=== PATIENT | male | born 1970 | race Caucasian/White ===

== ENCOUNTER 2017-01-26 06:02 | Inpatient (IN) | payer BC ==
[~2017-01-26] VITALS: Ht 175.3 cm; Wt 109.8 kg
[2017-01-26 08:07] LABS: BILIRUBIN,URINE 1+ (NEGATIVE); BLOOD, URINE NEGATIVE (NEGATIVE); CLARITY/URINE CLEAR (CLEAR); COLOR,URINE YELLOW (YELLOW); GLUCOSE,URINE NEGATIVE (NEGATIVE); KETONES,URINE 1+ (NEGATIVE); LEUKOCYTE ESTERASE ,URINE NEGATIVE (NEGATIVE); NITRITE, URINE NEGATIVE (NEGATIVE); PH,URINE 5.5 (5.0-8.0); PROTEIN URINE 1+ (NEGATIVE); UROBILINOGEN,URINE 0.2 (0.2-1.0)
[2017-01-26 08:10] LABS: BACTERIA,URINE RARE /HPF (None Seen); MUCUS,URINE 1+ /LPF (None Seen); RBC,URINE 0-3 /HPF (0-3); WBC,URINE 0-3 /HPF (0-3)
[2017-01-26 08:19] LABS: INR 1.2 (0.80-1.20); PROTHROMBIN TIME 12.7 SECS (9.5-12.5)
[2017-01-26 08:29] LABS: CALCIUM 8.4 mg/dL (8.4-11.0); CREATININE 1.05 mg/dL (0.55-1.30); POTASSIUM 3.9 mmol/L (3.5-5.1)
[2017-01-26 08:35] LABS: ALBUMIN 2.3 g/dL (3.4-4.8); TOTAL BILIRUBIN 0.8 mg/dL (0.0-1.0)
[2017-01-26 08:40] LABS: HEMOGLOBIN 8.3 g/dL (14.0-18.0); MEAN CORPUSCULAR HEMOGLOBIN 28 pg (27-31); MEAN CORPUSCULAR HGB CONC 33 % (32-36); MEAN CORPUSCULAR VOLUME 86 fL (79.0-98.0); PLATELET COUNT (AUTO) 64 K/uL (130-430); RED BLOOD CELL COUNT(AUTO) 2.92 MIL/uL (4.2-6.2); RED CELL DISTRIBUTION WIDTH 18.7 % (9.0-15.0)
[2017-01-26 08:44] LABS: WHITE BLOOD COUNT (AUTO) 1.1 K/uL (4.8-10.8)
[2017-01-26 09:40] LABS: BASOPHILS % (MANUAL) 0 % (0-2); EOSINOPHILS % (MANUAL) 0 % (0-7); LYMPHOCYTES % (MANUAL) 63 % (20-46); MONOCYTES % (MANUAL) 2 % (0-11)
[2017-01-26] MEDS ORDERED: PIPERACILLIN/TAZOBACTAM 4.5 GM/VIAL (ZOSYN) IV ONE (10:16)
[2017-01-26] MEDS ORDERED: ACETAMINOPHEN 500 MG TABLET ONE (11:28)
[2017-01-26 12:30] VITALS: BP_SYST 117
[2017-01-26] MEDS ORDERED: VANCOMYCIN HCL 750 MG in NS 250 ML IV SCH (16:00)
[2017-01-26] MEDS ORDERED: VANCOMYCIN HCL 1,500 MG in NS 250 ML IV SCH (16:00)
[2017-01-26] MEDS ORDERED: VANCOMYCIN HCL 1,250 MG in NS 250 ML IV SCH (16:00)
[2017-01-26] MEDS ORDERED: VANCOMYCIN HCL 1,000 MG in NS 250 ML IV SCH (16:00)
[2017-01-26] MEDS ORDERED: VANCOMYCIN HCL 500 MG in NS 100 ML IV SCH (16:00)
[2017-01-26 16:03] VITALS: BP_SYST 115
[2017-01-26] MEDS: VANCOMYCIN HCL 1,500 MG in NS 250 ML IV SCH (16:04)
[2017-01-26] MEDS: PIPERACILLIN/TAZO 4.5 GM in NS 100 ML IV SCH (17:01)
[2017-01-26] MEDS: FILGRASTIM 480 MCG/VIAL SUBCUT SCH (17:10)
[2017-01-26] MEDS: LEVOFLOXACIN 500 MG/D5W 100 ML IV SCH (17:34)
[2017-01-26] MEDS: ACETAMINOPHEN 325 MG TABLET PO PRN (19:20)
[2017-01-26 20:00] VITALS: BP_SYST 111
[2017-01-27 00:23] VITALS: BP_SYST 95
[2017-01-27] MEDS: PIPERACILLIN/TAZO 4.5 GM in NS 100 ML IV SCH ×3 (02:09→18:25)
[2017-01-27] MEDS: VANCOMYCIN HCL 1,500 MG in NS 250 ML IV SCH ×2 (04:10→17:35)
[2017-01-27 04:32] VITALS: BP_SYST 104
[2017-01-27 07:08] LABS: HEMOGLOBIN 8.1 g/dL (14.0-18.0); PLATELET COUNT (AUTO) 71 K/uL (130-430)
[2017-01-27 07:13] LABS: HEMATOCRIT 24.8 % (36-54); MEAN CORPUSCULAR HEMOGLOBIN 28 pg (27-31); MEAN CORPUSCULAR HGB CONC 33 % (32-36); MEAN CORPUSCULAR VOLUME 86 fL (79.0-98.0); RED BLOOD CELL COUNT(AUTO) 2.89 MIL/uL (4.2-6.2); RED CELL DISTRIBUTION WIDTH 19.2 % (9.0-15.0)
[2017-01-27 07:15] LABS: WHITE BLOOD COUNT (AUTO) 1.4 K/uL (4.8-10.8)
[2017-01-27 07:35] LABS: CALCIUM 7.9 mg/dL (8.4-11.0); CREATININE 1.05 mg/dL (0.55-1.30); PHOSPHORUS 2.8 mg/dL (2.7-4.5); POTASSIUM 4.8 mmol/L (3.5-5.1); TOTAL BILIRUBIN 0.9 mg/dL (0.0-1.0)
[2017-01-27 07:54] LABS: BASOPHILS % (MANUAL) 0 % (0-2); EOSINOPHILS % (MANUAL) 0 % (0-7); LYMPHOCYTES % (MANUAL) 61 % (20-46); MONOCYTES % (MANUAL) 1 % (0-11)
[2017-01-27 08:00] VITALS: BP_SYST 117
[2017-01-27 08:07] LABS: ERYTHROCYTE SEDIMENTATION RATE 106 MM/HR (0-15)
[2017-01-27] MEDS ORDERED: ENOXAPARIN SODIUM 40 MG/0.4 ML SYRINGE SUBCUT SCH (09:00)
[2017-01-27 12:00] VITALS: BP_SYST 126
[2017-01-27 15:53] VITALS: BP_SYST 130
[2017-01-27] MEDS: LEVOFLOXACIN 500 MG/D5W 100 ML IV SCH (17:34)
[2017-01-27] MEDS: ONDANSETRON HCL 4 MG/2 ML VIAL IVP PRN (17:35)
[2017-01-27] MEDS: FILGRASTIM 480 MCG/VIAL SUBCUT SCH (18:24)
[2017-01-27 20:40] VITALS: BP_SYST 113
[2017-01-27] MEDS: ACETAMINOPHEN 325 MG TABLET PO PRN (21:08)
[2017-01-28 00:16] VITALS: BP_SYST 92
[2017-01-28] MEDS: PIPERACILLIN/TAZO 4.5 GM in NS 100 ML IV SCH ×3 (02:30→18:45)
[2017-01-28] MEDS: VANCOMYCIN HCL 1,500 MG in NS 250 ML IV SCH ×2 (03:46→16:41)
[2017-01-28 04:41] VITALS: BP_SYST 111
[2017-01-28 07:25] LABS: ALBUMIN 2.1 g/dL (3.4-4.8); CALCIUM 8.1 mg/dL (8.4-11.0); CREATININE 1.13 mg/dL (0.55-1.30); TOTAL BILIRUBIN 0.7 mg/dL (0.0-1.0)
[2017-01-28 07:59] LABS: BASOPHILS % (AUTO) 0.2 % (0.0-2.0); EOSINOPHILS % (AUTO) 2.6 % (0.0-4.0); HEMOGLOBIN 8.9 g/dL (14.0-18.0); LYMPHOCYTES # (AUTO) 0.6 K/uL (1.0-5.5); LYMPHOCYTES % (AUTO) 46.5 % (20.5-51.5); MEAN CORPUSCULAR HEMOGLOBIN 28 pg (27-31); MEAN CORPUSCULAR HGB CONC 33 % (32-36); MEAN CORPUSCULAR VOLUME 86 fL (79.0-98.0); MONOCYTES # (AUTO) 0.1 K/uL (0.0-1.0); MONOCYTES % (AUTO) 7.1 % (1.7-9.3); NEUTROPHILS % (AUTO) 43.6 % (40.0-70.0); PLATELET COUNT (AUTO) 73 K/uL (130-430); RED BLOOD CELL COUNT(AUTO) 3.14 MIL/uL (4.2-6.2); RED CELL DISTRIBUTION WIDTH 18.8 % (9.0-15.0)
[2017-01-28 08:01] VITALS: BP_SYST 124
[2017-01-28 08:07] LABS: NEUTROPHILS # (AUTO) 0.6 K/uL (1.8-7.7); WHITE BLOOD COUNT (AUTO) 1.3 K/uL (4.8-10.8)
[2017-01-28] MEDS: ACETAMINOPHEN 325 MG TABLET PO PRN ×2 (08:31→18:42)
[2017-01-28 11:54] VITALS: BP_SYST 114
[2017-01-28] MEDS: LEVOFLOXACIN 500 MG/D5W 100 ML IV SCH (15:27)
[2017-01-28 16:14] VITALS: BP_SYST 123
[2017-01-28] MEDS: FILGRASTIM 480 MCG/VIAL SUBCUT SCH (18:42)
[2017-01-28 19:40] VITALS: BP_SYST 111
[2017-01-29 00:05] VITALS: BP_SYST 121
[2017-01-29] MEDS: PIPERACILLIN/TAZO 4.5 GM in NS 100 ML IV SCH ×3 (02:11→17:11)
[2017-01-29] MEDS: VANCOMYCIN HCL 1,500 MG in NS 250 ML IV SCH ×2 (04:08→16:06)
[2017-01-29 04:58] VITALS: BP_SYST 126
[2017-01-29 07:53] VITALS: BP_SYST 124
[2017-01-29 12:31] VITALS: BP_SYST 117
[2017-01-29 12:45] LABS: BASOPHILS % (AUTO) 0.9 % (0.0-2.0); EOSINOPHILS % (AUTO) 1.7 % (0.0-4.0); HEMATOCRIT 31.1 % (36-54); HEMOGLOBIN 10.1 g/dL (14.0-18.0); LYMPHOCYTES # (AUTO) 0.8 K/uL (1.0-5.5); MEAN CORPUSCULAR HEMOGLOBIN 28 pg (27-31); MEAN CORPUSCULAR HGB CONC 32 % (32-36); MEAN CORPUSCULAR VOLUME 86 fL (79.0-98.0); MONOCYTES # (AUTO) 0.1 K/uL (0.0-1.0); MONOCYTES % (AUTO) 6.4 % (1.7-9.3); PLATELET COUNT (AUTO) 71 K/uL (130-430); RED BLOOD CELL COUNT(AUTO) 3.62 MIL/uL (4.2-6.2); RED CELL DISTRIBUTION WIDTH 18.9 % (9.0-15.0)
[2017-01-29 13:02] LABS: ALBUMIN 2.4 g/dL (3.4-4.8); CALCIUM 8.9 mg/dL (8.4-11.0); CREATININE 1.18 mg/dL (0.55-1.30); POTASSIUM 3.8 mmol/L (3.5-5.1); TOTAL BILIRUBIN 0.8 mg/dL (0.0-1.0)
[2017-01-29 13:06] LABS: NEUTROPHILS # (AUTO) 0.7 K/uL (1.8-7.7); WHITE BLOOD COUNT (AUTO) 1.6 K/uL (4.8-10.8)
[2017-01-29] MEDS: LEVOFLOXACIN 500 MG/D5W 100 ML IV SCH (14:54)
[2017-01-29 16:15] VITALS: BP_SYST 112
[2017-01-29] MEDS: FILGRASTIM 480 MCG/VIAL SUBCUT SCH (17:11)
[2017-01-29 19:25] VITALS: BP_SYST 113
[2017-01-30 00:54] VITALS: BP_SYST 119
[2017-01-30] MEDS: PIPERACILLIN/TAZO 4.5 GM in NS 100 ML IV SCH ×3 (01:25→20:28)
[2017-01-30] MEDS: VANCOMYCIN HCL 1,500 MG in NS 250 ML IV SCH ×2 (04:10→17:20)
[2017-01-30 04:43] VITALS: BP_SYST 117
[2017-01-30 08:24] VITALS: BP_SYST 133
[2017-01-30 08:41] LABS: BASOPHILS % (AUTO) 1.4 % (0.0-2.0); EOSINOPHILS % (AUTO) 2.2 % (0.0-4.0); HEMATOCRIT 28.4 % (36-54); LYMPHOCYTES % (AUTO) 51.2 % (20.5-51.5); MEAN CORPUSCULAR HEMOGLOBIN 27 pg (27-31); MEAN CORPUSCULAR HGB CONC 32 % (32-36); MEAN CORPUSCULAR VOLUME 86 fL (79.0-98.0); MONOCYTES # (AUTO) 0.1 K/uL (0.0-1.0); NEUTROPHILS % (AUTO) 38.2 % (40.0-70.0); PLATELET COUNT (AUTO) 63 K/uL (130-430); RED BLOOD CELL COUNT(AUTO) 3.31 MIL/uL (4.2-6.2); RED CELL DISTRIBUTION WIDTH 19.1 % (9.0-15.0)
[2017-01-30 08:47] LABS: NEUTROPHILS # (AUTO) 0.6 K/uL (1.8-7.7); WHITE BLOOD COUNT (AUTO) 1.7 K/uL (4.8-10.8)
[2017-01-30 12:36] VITALS: BP_SYST 116
[2017-01-30 14:00] LABS: A/G RATIO 0.6 (0.7-1.7); ALBUMIN 2.4 g/dL (2.9-4.4); ALPHA-1-GLOBULIN 0.4 g/dL (0.0-0.4); ALPHA-2-GLOBULIN 0.8 g/dL (0.4-1.0); BETA GLOBULIN 1.1 g/dL (0.7-1.3); GAMMA GLOBULIN 1.7 g/dL (0.4-1.8); M-SPIKE Not Observed g/dL (Not Observed); RA LATEX TURBID 10.9 IU/mL (0.0-13.9)
[2017-01-30] MEDS: LEVOFLOXACIN 500 MG/D5W 100 ML IV SCH (15:31)
[2017-01-30 16:27] VITALS: BP_SYST 122
[2017-01-30] MEDS: FILGRASTIM 480 MCG/VIAL SUBCUT SCH (17:20)
[2017-01-30 20:20] VITALS: BP_SYST 119
[2017-01-30] MEDS: ONDANSETRON HCL 4 MG/2 ML VIAL IVP PRN (20:21)
[2017-01-31 00:33] VITALS: BP_SYST 118
[2017-01-31] MEDS: PIPERACILLIN/TAZO 4.5 GM in NS 100 ML IV SCH ×2 (02:33→11:03)
[2017-01-31] MEDS: VANCOMYCIN HCL 1,500 MG in NS 250 ML IV SCH (04:23)
[2017-01-31 04:25] VITALS: BP_SYST 115
[2017-01-31 07:22] LABS: BASOPHILS % (AUTO) 0.6 % (0.0-2.0); EOSINOPHILS % (AUTO) 1.9 % (0.0-4.0); HEMATOCRIT 25.2 % (36-54); HEMOGLOBIN 8.1 g/dL (14.0-18.0); LYMPHOCYTES # (AUTO) 0.9 K/uL (1.0-5.5); LYMPHOCYTES % (AUTO) 52.2 % (20.5-51.5); MEAN CORPUSCULAR HEMOGLOBIN 28 pg (27-31); MEAN CORPUSCULAR HGB CONC 32 % (32-36); MEAN CORPUSCULAR VOLUME 87 fL (79.0-98.0); MONOCYTES # (AUTO) 0.2 K/uL (0.0-1.0); NEUTROPHILS % (AUTO) 34.3 % (40.0-70.0); PLATELET COUNT (AUTO) 52 K/uL (130-430); RED BLOOD CELL COUNT(AUTO) 2.91 MIL/uL (4.2-6.2); RED CELL DISTRIBUTION WIDTH 18.9 % (9.0-15.0)
[2017-01-31 07:38] LABS: CALCIUM 8.7 mg/dL (8.4-11.0); CREATININE 1.17 mg/dL (0.55-1.30)
[2017-01-31 07:53] LABS: WHITE BLOOD COUNT (AUTO) 1.6 K/uL (4.8-10.8)
[2017-01-31 07:54] LABS: NEUTROPHILS # (AUTO) 0.5 K/uL (1.8-7.7)
[2017-01-31 08:19] VITALS: BP_SYST 104
[2017-01-31] MEDS ORDERED: LIDOCAINE 1% 10 MG/ML, 20 ML MDV INJ ONE (09:30)
[2017-01-31 12:00] VITALS: BP_SYST 112
[2017-01-31 16:26] VITALS: BP_SYST 122
[2017-01-31] MEDS: LEVOFLOXACIN 500 MG/D5W 100 ML IV SCH (16:44)
[2017-01-31] MEDS ORDERED: AMOX-426 PO (16:46)
[2017-01-31] MEDS ORDERED: CIPR-211 PO (16:46)
[2017-01-31 17:08] VITALS: BP_SYST 122
[2017-01-31 19:11] LABS: ANTI NUCLEAR AB WITH REFLEX Negative (Negative)
== END 2017-01-31 18:07 | disposition home or self-care (01) | DRG 810 ==
LOC: SED 06:02 → SMU 10:45
PROVIDERS: ADMIT Internal Medicine; ATTEND Internal Medicine
PROC: 07DR3ZX Extraction of Iliac Bone Marrow, Percutaneous Approach, Diagnostic (ICD-10-PCS; principal; 2017-01-31)
DX: D61.818 Other pancytopenia (principal); K74.60 Unspecified cirrhosis of liver; D73.1 Hypersplenism; E66.3 Overweight; K75.81 Nonalcoholic steatohepatitis (NASH); R50.81 Fever presenting with conditions classified elsewhere; Z68.35 Body mass index [BMI] 35.0-35.9, adult
CPT/HCPCS: 36415; 38221; 71010; 76700-TC; 80048; 80053; 80202-TC; 81000-TC; 82140-TC; 83605; 83615-TC; 83735-TC; 84100-TC; 84155; 84165; 85007; 85025; 85027; 85044-TC; 85384-TC; 85610-TC; 85651-TC; 85730-TC; 86038; 86431; 87040-TC; 87086; 88305; 88311; 99285; G0364; J1442; J1956; J2001; J2405; J2543; J3370; J7040; J7050

== ENCOUNTER 2017-02-02 06:34 | Emergency (ER) | payer BC ==
[~2017-02-02] VITALS: Ht 175.3 cm; Wt 110.2 kg
[~2017-02-02 06:34] MED LIST: AMOX-426 PO; CIPR-211 PO
[2017-02-02 06:44] VITALS: BP_SYST 121
--- NOTE | 2017-02-02 06:49 | NUR ---
Pt was recently discharged from ER for neutropenic fever. Pt states that he spiked a fever last night around midnight. Pt took tylenol 1,000 mg. Pt states he feels weak and has R flank pain 6/10. Pt has N and V after taking his abx. Pt is hot, normal, and dry. AAOx4. Will continue to monitor. No other injuries or complaints mentioned/noted. No distress noted.
--- NOTE | 2017-02-02 06:49 | NUR ---
Placed in room 07 . Placed on front desk monitor, blood pressure machine and pulse oximeter. To gown for exam. Side rails up. Report given to RN.
--- NOTE | 2017-02-02 06:50 | NUR ---
# 20 gauge angiocath placed to L forearm. Use of asceptic technique. Opsite placed over site. Blood return noted. Blood for lab drawn from site. Flushed with 10 cc of normal saline. No evidence of infiltration noted. Patient tolerated well.
--- NOTE | 2017-02-02 07:00 | NUR ---
Report and care endorsed to Cecilia ESPINAL.
--- NOTE | 2017-02-02 07:05 | NUR ---
Received report from Gilberto
[2017-02-02] MEDS ORDERED: NACL 0.9% 1,000 ML IV SCH (07:09)
[2017-02-02 07:31] LABS: HEMATOCRIT 28.4 % (36-54); HEMOGLOBIN 9.3 g/dL (14.0-18.0); MEAN CORPUSCULAR HEMOGLOBIN 28 pg (27-31); MEAN CORPUSCULAR HGB CONC 33 % (32-36); MEAN CORPUSCULAR VOLUME 86 fL (79.0-98.0); PLATELET COUNT (AUTO) 52 K/uL (130-430); RED BLOOD CELL COUNT(AUTO) 3.31 MIL/uL (4.2-6.2); RED CELL DISTRIBUTION WIDTH 19.1 % (9.0-15.0)
[2017-02-02 07:33] LABS: WHITE BLOOD COUNT (AUTO) 1.4 K/uL (4.8-10.8)
[2017-02-02 07:36] LABS: CREATININE 1.43 mg/dL (0.55-1.30); POTASSIUM 4.1 mmol/L (3.5-5.1)
[2017-02-02 07:41] LABS: ALBUMIN 2.4 g/dL (3.4-4.8)
[2017-02-02] MEDS ORDERED: ACETAMINOPHEN 500 MG TABLET PO ONE (07:45)
--- NOTE | 2017-02-02 07:50 | NUR ---
ATB and iv hydration was started, no noted adverse reaction, will conitnue to monitor.
[2017-02-02 08:16] LABS: ATYPICAL LYMPHOCYTES % 0 % (0-0); BAND % (MANUAL) 3 % (0-6); BASOPHILS % (MANUAL) 0 % (0-2); EOSINOPHILS % (MANUAL) 1 % (0-7); LYMPHOCYTES % (MANUAL) 46 % (20-46); MONOCYTES % (MANUAL) 3 % (0-11)
--- NOTE | 2017-02-02 08:30 | NUR ---
Pt is resting comfortably in bed with no noted distress or discomfort.
[2017-02-02 08:32] LABS: BILIRUBIN,URINE 1+ (NEGATIVE); BLOOD, URINE 2+ (NEGATIVE); CLARITY/URINE CLEAR (CLEAR); COLOR,URINE YELLOW (YELLOW); GLUCOSE,URINE NEGATIVE (NEGATIVE); KETONES,URINE TRACE (NEGATIVE); LEUKOCYTE ESTERASE ,URINE TRACE (NEGATIVE); NITRITE, URINE NEGATIVE (NEGATIVE); PH,URINE 6.5 (5.0-8.0); PROTEIN URINE 1+ (NEGATIVE); UROBILINOGEN,URINE 0.2 (0.2-1.0)
[2017-02-02 08:41] LABS: BACTERIA,URINE FEW /HPF (None Seen); RBC,URINE 20-50 /HPF (0-3)
--- NOTE | 2017-02-02 09:00 | NUR ---
Temperature was taken after tylenol was given went down to 99.9
[2017-02-02] MEDS ORDERED: LEVOFLOXACIN 500 MG/D5W 100 ML IV ONE (09:15)
--- NOTE | 2017-02-02 09:30 | NUR ---
Dr Nye is at bedside examining patient
--- NOTE | 2017-02-02 10:53 | NUR ---
Patient given written and verbal discharge instructions and verbalizes understanding. ER MD discussed with patient the results and treatment provided. Patient in stable condition. ID arm band removed. IV catheter removed intact and dressing applied, no active bleeding. Rx of Levaquin given. Patient educated on pain management and to follow up with PMD. Pain Scale 0. Opportunity for questions provided and answered.
[2017-02-02 11:00] VITALS: BP_SYST 114
== END 2017-02-02 10:53 | disposition home or self-care (01) ==
LOC: SED 06:34
DX: C85.80 Other specified types of non-Hodgkin lymphoma, unspecified site (principal); D61.818 Other pancytopenia
CPT/HCPCS: 36415; 71010; 80053; 81000; 83605; 85007; 85027; 86710; 87040; 87081; 87086; 96361; 96365; 99285; J1956; J7030